=== PATIENT | female | born 1970 | race Caucasian/White ===

== ENCOUNTER → 2016-12-04 | Outpatient (CLI) | payer BC ==
[~2016-12-04] MED LIST: COLACE-DPS100 MG PO; FEOSOL-DPS325 MG PO; MILK OF MAGNESI10 ML PO; MOTRIN-DPS800 MG PO; PERCOCET 5 DPS1 TAB PO
== END | disposition home or self-care (01) ==
LOC: RAD.S 15:09
DX: M54.5 Low back pain (principal); M47.817 Spondylosis without myelopathy or radiculopathy, lumbosacral region; M48.07 Spinal stenosis, lumbosacral region

== ENCOUNTER → 2016-12-19 | Outpatient (CLI) | payer BC | END | disposition home or self-care (01) | LOC: RAD.S 15:24 | DX: M54.5 Low back pain (principal); M51.25 Other intervertebral disc displacement, thoracolumbar region; M47.816 Spondylosis without myelopathy or radiculopathy, lumbar region ==

== ENCOUNTER → 2017-01-03 | Outpatient (CLI) | payer BC | END | disposition home or self-care (01) | LOC: RAD.S 07:10 | DX: Z12.31 Encounter for screening mammogram for malignant neoplasm of breast (principal) ==

== ENCOUNTER 2017-02-13 08:12 | Day surgery (SDC) | payer BC ==
[~2017-02-13] VITALS: Ht 162.6 cm
--- NOTE | 2017-02-15 08:22 | OR ---
ADMIT: 02/13/2017 RM/LOC: [facility] MR#: [id number] [address] [place] [id number] STACEY SOTOMAYOR [address] [place] [address] Operative/Delivery Room Report SEX: F AGE: 46 : 1970 SURGERY DATE: 02/13/2017 SURGEON: Peter Colbert MD MEDICAL LABORATORY SPECIALIST: None. PREPROCEDURE DIAGNOSES: 1. Bilateral sacroiliac joint dysfunction. 2. Low back pain. POSTPROCEDURE DIAGNOSES: 1. Bilateral sacroiliac joint dysfunction. 2. Low back pain. PROCEDURE PERFORMED: Bilateral sacroiliac joint injection. INDICATIONS FOR PROCEDURE: The patient is a pleasant female with history of chronic low back pain secondary to above-mentioned diagnoses comes here for planned bilateral SI joint injection. ANESTHESIA: Local without sedation. ESTIMATED BLOOD LOSS: Zero. COMPLICATIONS: None immediately evident. DESCRIPTION OF PROCEDURE: After the patient was seen in the preoperative area, vitals signs were taken. Prior to the procedure, the risks, benefits, and alternative therapies were discussed at length. Patient consent was obtained and updated. The patient was taken to the fluoroscopy suite and placed on the fluoroscopy table in the prone position. Pressure points were padded to comfort, monitors applied, and a timeout performed. C-arm was brought in to identify the right SI joint. Lidocaine plain 1%, approximately 2 mL, was used to anesthetize the skin and underlying subcutaneous tissue. A 3.5-inch 22-gauge curved-tip needle was then advanced through the anesthetized skin and placed inside the inferior portion of the SI ADMIT: 02/13/2017 RM/LOC: [facility] MR#: [id number] [address] [place] [id number] STACEY SOTOMAYOR [address] [facility] [place] [address] Operative/Delivery Room Report SEX: F AGE: 46 : 1970 joint. Isovue-300 was injected into the SI joint and showed good spread into the SI joint. After correct placement was confirmed, 5 mL of 0.25% Marcaine and 40 mg of Depo-Medrol were injected. The procedure was then repeated on the left this sentence side. The patient tolerated the procedure well without any complications. The patient was then brought to PACU where she recovered nicely. PLAN: The patient was examined after 20 minutes and had 80% reduction of pain. Discharge instructions were given, followup scheduled. The patient was discharged home with a jinriksha driver. Peter Colbert MD/ madeline JOB #: [id number] CC: Peter Colbert MD, Attending Physician Virginia Ferrer MD, Family Physician
== END 2017-02-13 10:15 | disposition home or self-care (01) ==
LOC: SSS 08:12
PROC: 3E0U33Z Introduction of Anti-inflammatory into Joints, Percutaneous Approach (ICD-10-PCS; principal; 2017-02-13)
PROC: 3E0U3BZ Introduction of Anesthetic Agent into Joints, Percutaneous Approach (ICD-10-PCS; principal; 2017-02-13)
DX: G89.29 Other chronic pain (principal); M53.3 Sacrococcygeal disorders, not elsewhere classified; M48.06 Spinal stenosis, lumbar region; M51.26 Other intervertebral disc displacement, lumbar region; F32.9 Major depressive disorder, single episode, unspecified; Z87.440 Personal history of urinary (tract) infections; Z90.710 Acquired absence of both cervix and uterus; Z98.890 Other specified postprocedural states